=== PATIENT | female | born 1950 | race Caucasian/White ===

== ENCOUNTER 2021-11-14 13:20 | Emergency (ER) | payer OTHER ==
[~2021-11-14] VITALS: Ht 157.5 cm; Wt 71.2 kg
--- NOTE | 2021-11-14 13:20 | NUR ---
PT BIBA TO BED 10.
[2021-11-14 13:31] VITALS: BP 110/62
--- NOTE | 2021-11-14 13:31 | NUR ---
71 y/o female biba from home, c/o chest pressure sensation that started 20 minutes prior to arrival. upon arrival, ems started iv 18g in left ac, meds were given. pt states pain has subsided, but was worried because she felt palpitations. denies sob, cough, fevers or chills. a&ox4, ambulates with even and steady gait. lungs clear bl, heart sounds even and tachy. skin pink/warm/dry. ermd made aware of status. pmh: htn, dm2, afib, mi, stent allergy: codeine, erythromycin, artifical sweetner, codeine med: metoprolol, oxybutin, amlodipine
[2021-11-14] MEDS: DILTIAZEM 25 MG/5 ML VIAL IVP ONE (13:58)
[2021-11-14 14:17] LABS: BASOPHILS # (AUTO) 0.2 K/uL (0.00-0.22); BASOPHILS % (AUTO) 1.2 % (0.0-2.0); EOSINOPHILS # (AUTO) 0.1 K/uL (0-0.4); EOSINOPHILS % (AUTO) 0.6 % (0.0-4.0); HEMATOCRIT 43.7 % (36-48); HEMOGLOBIN 15.3 g/dL (12.0-16.0); LYMPHOCYTES # (AUTO) 4.2 K/uL (2.5-16.5); LYMPHOCYTES % (AUTO) 28.3 % (20.5-51.1); MEAN CORPUSCULAR HEMOGLOBIN 33 pg (27-31); MEAN CORPUSCULAR HGB CONC 35 g/dL (33-37); MEAN CORPUSCULAR VOLUME 93.5 fL (80-94); MONOCYTES # (AUTO) 2.3 K/uL (0.8-1.0); MONOCYTES % (AUTO) 15.4 % (1.7-9.3); NEUTROPHILS # (AUTO) 8.2 K/uL (1.8-7.7); NEUTROPHILS % (AUTO) 54.5 % (42.2-75.2); PLATELET COUNT (AUTO) 374 K/uL (140-450); RED BLOOD CELL COUNT(AUTO) 4.67 MIL/uL (4.20-5.40); RED CELL DISTRIBUTION WIDTH 13.4 % (11.6-13.7)
--- NOTE | 2021-11-14 14:20 | NUR ---
DARIAN SWAB COLLECTED AND WALKED TO LAB
[2021-11-14 14:42] LABS: THYROID STIMULATING HORMONE 1.85 uIU/mL (0.34-3.74)
[2021-11-14 15:00] LABS: PROTHROMBIN TIME 10.1 secs (10.8-13.4)
[2021-11-14 15:01] LABS: ALBUMIN 3.6 g/dL (3.4-5.0); ANION GAP 12.4 (8-16); ASPARTATE AMINOTRANSFERASE 16 U/L (15-37); CARBON DIOXIDE 27.4 mmol/L (21-32); CHLORIDE 106 mmol/L (98-107); CREATININE 0.8 mg/dL (0.6-1.3); GLUCOSE 300 mg/dL (74-106); POTASSIUM 3.8 mmol/L (3.5-5.1); SODIUM SERUM 142 mmol/L (136-145); TOTAL BILIRUBIN 1.4 mg/dL (0.0-1.0); UREA NITROGEN, BLOOD 22 mg/dL (7-18)
--- NOTE | 2021-11-14 15:02 | NUR ---
Patient appears to be resting comfortably in bed. Vital Signs within normal limits. Respirations even and unlabored.
[2021-11-14] MEDS ORDERED: [UNRECOGNIZED DRUG - CODE] TD (16:32)
[2021-11-14] MEDS ORDERED: METO25TA14 PO (16:32)
[2021-11-14] MEDS ORDERED: AMLO2.5T PO (16:32)
--- NOTE | 2021-11-14 17:30 | NUR ---
Patient appears to be resting comfortably in bed. Vital Signs within normal limits. Respirations even and unlabored.
--- NOTE | 2021-11-14 18:43 | NUR ---
pt ambulated to bathroom at this time with even and steady gait
--- NOTE | 2021-11-14 19:25 | NUR ---
RECIEVED TRANSFER OF CARE REPORT FROM [facility]
[2021-11-14 20:08] VITALS: BP 136/98
--- NOTE | 2021-11-14 20:09 | NUR ---
Patient discharged with v/s stable. Written and verbal after care instructions given and explained. Patient verbalized understanding. Ambulatory with steady gait. All questions addressed prior to discharge. Advised to follow up with PMD. vss, a/ox4, ambulatory, unlabored breathing, and calm demeanor.
== END 2021-11-14 20:07 | disposition home or self-care (01) ==
LOC: MED 13:20
DX: I48.91 Unspecified atrial fibrillation (principal); I25.10 Atherosclerotic heart disease of native coronary artery without angina pectoris; I25.2 Old myocardial infarction; E11.9 Type 2 diabetes mellitus without complications; I10 Essential (primary) hypertension; Z20.822 Contact with and (suspected) exposure to COVID-19; R00.0 Tachycardia, unspecified; Z95.5 Presence of coronary angioplasty implant and graft; Z90.49 Acquired absence of other specified parts of digestive tract; Z90.710 Acquired absence of both cervix and uterus; Z98.890 Other specified postprocedural states; Z79.899 Other long term (current) drug therapy; Z88.5 Allergy status to narcotic agent; Z88.1 Allergy status to other antibiotic agents; Z88.0 Allergy status to penicillin
CPT/HCPCS: 36415; 71045; 80053; 83880; 84443; 84484; 85025; 85610; 85730; 87426; 93005; 96374; 99291; J3490; Q0092